=== PATIENT | male | born 2000 | race Caucasian/White ===

== ENCOUNTER 2022-03-16 06:56 | Emergency (ER) | payer SELFPAY ==
[~2022-03-16] VITALS: Ht 182.9 cm; Wt 94.1 kg
[2022-03-16] MEDS ORDERED: ACETAMINOPHEN 325MG TABLET PO ONE (08:30)
[2022-03-16] MEDS ORDERED: METOCLOPRAMIDE HCL 10MG TABLET PO ONE (08:30)
[2022-03-16] MEDS ORDERED: ACET-2708 MT (09:27)
[2022-03-16 10:02] VITALS: BP 118/89
== END 2022-03-16 10:04 | disposition home or self-care (01) ==
LOC: ER 06:56
DX: S09.8XXA Other specified injuries of head, initial encounter (principal); W22.8XXA Striking against or struck by other objects, initial encounter; Y93.89 Activity, other specified; Y92.89 Other specified places as the place of occurrence of the external cause; Y99.8 Other external cause status
CPT/HCPCS: 70450; 99284; J8597